=== PATIENT | male | born 1985 | race Two or more races ===

== ENCOUNTER 2016-11-12 12:19 | Inpatient (IN) | payer OTHER ==
[~2016-11-12] VITALS: Ht 165.1 cm; Wt 66.0 kg
--- NOTE | ~2016-11-12 | CO ---
Unit #: [id number] #: [id number] Patient: RITCHIE NELSON [id number] [address] [place], [place] [address] [id number] Allie MR#: [id number] NAME: RITCHIE NELSON. ROOM: [facility]iatric hospital Age: 31 Sex: M Admission Date: 11/12/2016 : 1985 Attending Physician: Johann Lu M.D. Primary Care Physician: Primary Care Physician No Consultation Date: 11/13/2016 CONSULTATION REPORT PRIMARY CARE PHYSICIAN None. REASON FOR CONSULTATION Abnormal MRI, fatigue, and right-sided weakness. PATIENT IDENTIFICATION This is a 31-year-old right-handed male from [facility], who is here as a veterinary aide at [employer], and he has been feeling fatigue for the last several days and probably some right-sided weakness, so he came to the emergency room. He was evaluated and had a CT of the head done which showed possibility of some basal ganglia changes in the left lentiform nuclei and that ended up over the patient going for a head CT, which showed left basal ganglia infarct about 2 cm x 1.4 cm x 1.4 cm, mild local mass effect and so far what we have known is that the patient has significant hypertension when he came in his blood pressure was 233/133 which has been as high as 153 diastolic and still elevated. This morning, the blood pressure was 187/117. Other workup is in progress. He was started on aspirin. His ALT and AST were slight elevated. He is not a smoker. He is not alcohol abuser. He denies any drugs or alcohol use. He denies any family members with early onset stroke or coronary artery issues. He does not take any medication. No hypercoagulable state history available. No prior TIAs. No migraines. No seizures. Dissection type history not really absorb. PAST MEDICAL HISTORY As discussed above. PAST SURGICAL HISTORY Right elbow surgery. ALLERGIES Unit #: [id number] #: [id number] Patient: RITCHIE NELSON None known to us. HOME MEDICATIONS None. FAMILY HISTORY Denies any family history of stroke or coronary artery disease. 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 He denies tobacco, alcohol, or drug use. REVIEW OF SYSTEMS CONSTITUTIONAL: Some fatigue and right-sided weakness. He denies any weight issues, fever, chills, rigors, or sweats. He denies any sleep issue. HEENT: No headaches. No double vision, earache, runny nose, or sore throat. CARDIOVASCULAR: No chest pain, clubbing, cyanosis, orthopnea, or palpitation. PULMONARY: No shortness of air, cough, or expectoration. GI: No nausea, vomiting, diarrhea, or constipation. GENITOURINARY: No genitourinary symptoms. EXTREMITIES: No extremity problems other than some mild right-sided weakness. BACK: No back problem. PSYCHIATRIC: No psychotic issue. NEUROLOGIC: New stroke. No other hematologic, dermatologic, or endocrine issues known to me. PHYSICAL EXAMINATION VITAL SIGNS: Temperature 98.2, pulse 87, respiratory rate 19, blood pressure 187/117. No pain was reported. O2 saturations were 97% to 100%. Weight of 145 pounds, BMI was 24. NEUROLOGIC: The patient is awake, alert, oriented x3. He can name and he can follow commands. No right/left confusion. No finger agnosia. Cranial nerve examination demonstrates full ram of vision to confrontation. Eye movements are conjugate. I did not see any ptosis. I did not see any nystagmus. Extraocular movements are intact. Sensation on the face and scalp are normal. Strength of muscles of facial expression are normal. Hearing seemed to be intact bilaterally. Tongue was midline. Uvula was midline. Palate elevation was normal. Head turning and shoulder shrugs were unremarkable. Motor examination demonstrated normal bulk, tone. Strength was essentially 5/5 on the left side, 4+ to 5- on the right side especially in the right upper extremity and right lower extremity is 5-/5. Sensory examination intact for soft touch and pain sensation. No extinction was seen. Romberg was not evaluated. Gait examination was deferred. Reflexes 1/4. Toes are equivocal. Coordination was otherwise unremarkable for damqkn-mj-fwak-to-finger. DIAGNOSTIC STUDIES Unit #: [id number] #: [id number] Patient: RITCHIE NELSON LABORATORY RESULTS: Personally reviewed. IMAGING STUDIES: Personally reviewed. IMPRESSION Left basal ganglia infarct, hypertensive urgency. I agree with stroke workup. I agree with CTA, 2D echo. I will check his hemoglobin A1c. I will start him on Lipitor and aspirin full dose, good blood pressure control and we will see what shows up. Stroke education and modification of stroke risk factors as apply. Call me for any other questions, issues, or concerns. Further treatment will be based on any findings and he will follow up with Dr. Amaya or neurologist of choice as an outpatient to do a full stroke screening and workup as indicated. I will follow him and discuss with Dr. Lu. Dictated by... Lia Cardenas/margo TD: 11/14/2016 12:01 JOB #: [id number] CONSULTATION REPORT Page 1 of 1 X Suki Rudd MD X CONSULTATION REPORT
--- NOTE | ~2016-11-12 | CT17 ---
[facility] A Service of [facility] RADIOLOGY TEXT RESULTS PATIENT: RITCHIE NELSON LOCATION: [facility] 339-01 : 84 UNIT #: [id number] AGE: [address]: Johann Lu MD SEX: M ORDER DR: [id number] [facility] [address] [facility]. [place], [place] [address] [id number] I MR#: [id number] Acc #: [id number] NAME: RITCHIE NELSON. : 1985 SEX: M STUDY DATE/TIME: 11/13/2016 18:10 UNIT: [address] ROOM: [facility] STUDY DESCRIPTION: CT Angio Head Attending Physician: Johann Lu M.D. Ordering Physician: Suki Rudd M.D. Primary Care Physician: Primary Care Physician No MEDICAL IMAGING REPORT This report is preliminary unless electronic signature is present EXAM CT angiogram of the head and neck with contrast, 11/13/[address] head without contrast and MRI brain without contrast, 11/12/2016 HISTORY Weakness and fatigue for 5 days. Unable to finish words, slurred speech and right-sided weakness. TECHNIQUE CT angiogram of the head and neck was obtained with IV contrast in the axial plane followed by reformats. Curved reformats of the major neck arteries were performed of the neck. Reformats of the [place] of [place] was obtained in all three planes along with tumbling 3-D MIP images and surface rendered images with bilateral MCA snapshots in a separate workstation. This CT exam was performed with one or more of the following radiation dose reduction techniques: automatic exposure control, adjustment of mA and/or kV according to patient size, and iterative reconstruction. FINDINGS NECK: Two vessel aortic arch is seen with the left common carotid artery arising from the innominate artery. Bilateral common carotid arteries do not demonstrate any significant abnormality. In the short segment where there is significant streak artifact from left internal jugular venous contrast, evaluation of the left CCA is limited. Bilateral ICA and ECA do not demonstrate any significant abnormality. Left vertebral artery is dominant. The right vertebral artery is not clearly seen. There are multiple enhancing vessels in the expected course of the right vertebral artery which could be related to enhancing plexus. [facility] A Service of [facility] RADIOLOGY TEXT RESULTS PATIENT: RITCHIE NELSON LOCATION: [facility] 339-01 : [birth year] UNIT #: [id number] AGE: [address]: Johann Lu MD SEX: M ORDER DR: HEAD: Bilateral intracranial internal carotid arteries, anterior and middle cerebral arteries are unremarkable except for slightly decreased caliber of the A1 segment of the right CLAY. ACOM crossfills. Tiny right PCOM and probably left PCOM are present. bilateral posterior cerebral arteries appear to be grossly unremarkable. 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 Left vertebral artery feeds the basilar artery. Right vertebral artery is not seen intracranially either. Dural venous sinuses demonstrate non-visualization of the medial aspect of the left transverse sinus. The lateral half of the left transverse sinus is visualized with smaller caliber left sigmoid sinus. IMPRESSION 1. The right vertebral artery is not clearly seen from its origin to the vertebrobasilar intracranial junction. It could be aplastic or there could be very severe stenosis to complete occlusion of the origin of the right vertebral artery. It is difficult to discern the location of the vessel origin. There are no prior studies for comparison. The basilar artery is predominant and the posterior circulation is predominantly fed by the dominant left vertebral artery. 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 2. No hemodynamically flow-limiting significant stenosis in bilateral internal carotid artery bulbs per NASCET criteria. 3. No significant aneurysm or AVM in the head or neck major vessels. 4. The medial half of the left transverse sinus is not seen. The veins constitute the lateral half of the left transverse sinus. It is probably an expected appearance in this patient. No acute thrombus is seen. 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 5. 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 Attempt is made to contact the nurse taking care of the patient at 10:55 p.m. on 11/13/2016. Dictated by... Chithra Nadine Negro, M.D. THIS IS AN ELECTRONICALLY VERIFIED REPORT Jared Tom M.D. at 11/20/2016 3:11 PM CPR/jw TD: 11/14/2016 11:27 JOB #: [id number] [facility] A Service of [facility] RADIOLOGY TEXT RESULTS PATIENT: RITCHIE NELSON LOCATION: [place] [address] : [birth year] UNIT #: [id number] AGE: [address]: Johann Lu MD SEX: M ORDER DR: MEDICAL IMAGING REPORT Page 1 of 1 COPY
--- NOTE | ~2016-11-12 | HP ---
Unit #: [id number] #: [id number] Patient: RITCHIE NELSON [id number] [address] [place], [place] [address] [id number] I MR#: [id number] NAME: RITCHIE NELSON. ROOM: [id number] Age: Sex: M Admission Date: 11/12/2016 : 1985 Attending Physician: Johann Lu M.D. Primary Care Physician: Primary Care Physician No HISTORY AND PHYSICAL CHIEF COMPLAINT Fatigue. HISTORY OF PRESENT ILLNESS Patient is a 31-year-old male who presented to [facility] emergency department after a 4 day history of fatigue. He states it has been associated with inability to find words and slow thoughts. He had poor appetite. He says he has had some question of right sided weakness and slurred speech so these have resolved. He denies vision changes and trouble swallowing. PAST MEDICAL HISTORY None. PAST SURGICAL HISTORY Right elbow surgery. SOCIAL HISTORY The patient denies tobacco, alcohol, illicit drug use. FAMILY HISTORY The patient denies any significant family history. HOME MEDICATIONS None. ALLERGIES None. REVIEW OF SYSTEMS 10-point review of systems obtained, negative except as per HPI. PHYSICAL EXAM VITAL SIGNS: Temperature 98.1, pulse 92, blood pressure 231/153. GENERAL: 31-year-old male in no acute distress who appears stated age. HEENT: Pupils equally round. Extraocular movements intact. Mucous membranes dry. NECK: Supple. No JVD, no lymphadenopathy. CARDIAC: Regular rate and rhythm. No murmurs, gallops or rubs. LUNGS: Clear to auscultation bilaterally. ABDOMEN: Nontender, nondistended. Positive bowel sounds. EXTREMITIES: No clubbing, cyanosis or edema. They are warm and dry. PSYCH: Alert and oriented x3. Affect is appropriate. NEUROLOGICAL: Cranial nerves II-XII intact grossly. The patient moves Unit #: [id number] #: [id number] Patient: RITCHIE NELSON all extremities equally and with purpose. SKIN: No rashes, bruises or ulcers. MUSCULOSKELETAL: No muscle or joint pain, no muscle or joint swelling. DIAGNOSTIC STUDIES LABORATORIES: Chemistries show AST and ALT of 59 and 71 respectively. Alk. phos. 131. Hemoglobin 12.1, MCV of 59. IMAGING: CT head without contrast shows 5 mm old lacunar infarct in the right lentiform nucleus and a 1.5 cm oval focus of decreased density in the left lentiform nucleus. It is an old infarct but new since May of 2015. ASSESSMENT AND PLAN 1. Hypertensive emergency. Patient received labetalol in the emergency department. I have started him on Cardene 5 mg/hour with titration parameters to maintain systolic blood pressure less than 175 and diastolic pressure less than 110. 2. History of CVA. Based on the CT and old infarcts, I have ordered an MRI to further evaluate these old areas. 3. Prophylaxis. Patient has been started on SCDs. Dictated by Jaguar Barber M.D. EMELI/joslyn TD: 11/12/2016 14:49 JOB #: [id number] HISTORY AND PHYSICAL Page 1 of 1 X Jaguar Barber MD X HISTORY AND PHYSICAL
--- NOTE | ~2016-11-12 | CT71 ---
[facility] A Service of [facility] RADIOLOGY TEXT RESULTS PATIENT: RITCHIE NELSON LOCATION: [facility] 339- : 84 UNIT #: [id number] AGE: [address]: Johann Lu MD SEX: M ORDER DR: [id number] [facility] [address] [facility]. [place], [place] [address] [id number] P MR#: [id number] Acc #: [id number] NAME: RITCHIE NELSON : 1985 SEX: M STUDY DATE/TIME: 11/12/2016 13:15 UNIT: PANKAJ ROOM: STUDY DESCRIPTION: CT Head Wo Contrast Attending Physician: Walt Salazar M.D. Ordering Physician: Walt Salazar M.D. Primary Care Physician: Primary Care Physician No MEDICAL IMAGING REPORT This report is preliminary unless electronic signature is present EXAM Head CT without contrast 11/12/2016 HISTORY Generalized weakness, fatigue and difficulty with speech, dysphasia since 11/08/2016. FINDINGS Multiple axial images were obtained from the skull base to vertex without intravenous contrast administration. This CT examination was performed with one or more of the following radiation dose reduction techniques: automatic exposure control, adjustment of mA and/or kV according to patient size, and iterative reconstruction. The ventricles are normal in size, shape and position. 5 mm old lacunar infarct in the right lentiform nucleus is again noted. Compared with 05/13/2015, there is a new 1.5 cm oval focus of decreased density in the left lentiform nucleus. Although new since the previous exam, the density features suggest chronicity. There is no midline shift. There is no mass or mass effect, hemorrhage or acute infarct. The visualized paranasal sinuses are clear. IMPRESSION Old infarcts as noted above. No acute intracranial abnormality. Dictated by... Clem Walters M.D. THIS IS AN ELECTRONICALLY VERIFIED REPORT Clem Walters M.D. at 11/13/2016 10:36 AM VIKY/alfredito [facility] A Service of [facility] RADIOLOGY TEXT RESULTS PATIENT: RITCHIE NELSON LOCATION: [facility] 339-01 : [birth year] UNIT #: [id number] AGE: [address]: Johann Lu MD SEX: M ORDER DR: TD: 11/12/2016 13:27 JOB #: [id number] MEDICAL IMAGING REPORT Page 1 of 1 COPY
--- NOTE | ~2016-11-12 | CT23 ---
[facility] A Service of [facility] RADIOLOGY TEXT RESULTS PATIENT: RITCHIE NELSON LOCATION: [facility] 339-01 : [birth year] UNIT #: [id number] AGE: [address]: Johann Lu MD SEX: M ORDER DR: [id number] [address] [address] [id number] I MR#: [id number] Acc #: [id number] NAME: RITCHIE NELSON. : 1985 SEX: M STUDY DATE/TIME: 11/13/2016 18:10 UNIT: [address] ROOM: [facility] STUDY DESCRIPTION: CT Angio Neck Attending Physician: Johann Lu M.D. Ordering Physician: Suki Rudd M.D. Primary Care Physician: Primary Care Physician No MEDICAL IMAGING REPORT This report is preliminary unless electronic signature is present EXAM CT angiogram of the neck HISTORY FINDINGS Please see CT angiogram of the head for results. Dictated by... Jared Tom M.D. THIS IS AN ELECTRONICALLY VERIFIED REPORT Jared Tom M.D. at 11/14/2016 7:09 PM TA/elizabeth TD: 11/14/2016 11:28 JOB #: [id number] MEDICAL IMAGING REPORT Page 1 of 1 COPY
--- NOTE | ~2016-11-12 | MR18 ---
[facility] A Service of [facility] RADIOLOGY TEXT RESULTS PATIENT: RITCHIE NELSON LOCATION: [facility] 339-01 : [birth year] UNIT #: [id number] AGE: [address]: Johann Lu MD SEX: M ORDER DR: [id number] [facility] [address] [facility]. [place], [place] [address] [id number] I MR#: [id number] Acc #: [id number] NAME: RITCHIE NELSON. : 1985 SEX: M STUDY DATE/TIME: 11/12/2016 16:05 UNIT: A U ROOM: 339 STUDY DESCRIPTION: MR Brain Wo Contrast Attending Physician: Johann Lu M.D. Ordering Physician: Jaguar Barber M.D. Primary Care Physician: Primary Care Physician No MRI CENTER REPORT This report is preliminary unless electronic signature is present. EXAM MRI brain without HISTORY Weakness and fatigue since with speech difficulty. Abnormal head CT admitted with hypertension and weakness. COMMENTS MRI of the brain was performed without contrast using routine 1.5T imaging technique. Head CT for comparison is from 11/12/2016. Preliminary wet reading provided by Dr. Newton 17:49 11/12/2016. There is a focus of abnormally restricted diffusion in the left basal ganglia extending into the left gramajo radiata. It measures about 2 x 1.6 x 1.4 cm dimension. It is centered in the putamen involves the body of the caudate and probably involves the posterior limb left internal capsule. It is not associated with hemorrhagic transformation at this time on the MRI or earlier CT. Given the location and history is likely due to small vessel disease in the setting of hypertension. Clinical correlation and followup is recommended. At this time there is mild local mass effect consistent with a recent nature of the insult. There are other smaller areas of likely preexisting sequelae of small vessel disease. This includes a small lesion in the right putamen posteriorly superiorly. Mild nonspecific white matter disease likely due to small vessel disease. No midline shift or downward herniation. The basilar cisterns are patent. The major arterial intracranial flow voids are maintained. The distal right vertebral artery is hypoplastic or diseased. The mastoid air cells are clear. The visualized paranasal sinuses are clear. IMPRESSION [facility] A Service of [facility] & [facility] RADIOLOGY TEXT RESULTS PATIENT: RITCHIE NELSON LOCATION: [facility] 339-01 : [birth year] UNIT #: [id number] AGE: [address]: Johann Lu MD SEX: M ORDER DR: 1. Focus of recent ischemia centered in the superior left basilar ganglia extending into the gramajo radiata measuring 2 x 1.6 x 1.4 cm in dimension. It is associated with mild local mass effect but there is no evidence for hemorrhagic transformation. It is probably due to small vessel disease in light of history provided. 2. Likely mild preexisting probable sequelae of small vessel disease. Dictated by... Ivory Hopkins M.D. THIS IS AN ELECTRONICALLY VERIFIED REPORT Ivory Hopkins M.D. at 11/13/2016 2:15 PM MIRA/cecil TD: 11/13/2016 09:35 JOB #: [id number] MRI CENTER REPORT Page 1 of 1 COPY
--- NOTE | ~2016-11-12 | DS ---
Unit #: [id number] #: [id number] Patient: RITCHIE NELSON [id number] [address] [address] [id number] Allie MR#: [id number] NAME: RITCHIE NELSON. ROOM: [facility] Age: 31 Sex: M Admission Date: 11/12/2016 : 1985 Discharge Date: 11/14/2016 Attending Physician: Johann Lu M.D. Primary Care Physician: No Primary Care Physician DISCHARGE SUMMARY PRIMARY DIAGNOSIS Acute stroke in the superior left basal ganglia. SECONDARY DIAGNOSES 1. Hypertensive emergency. 2. Mild to moderate left ventricular hypertrophy, concentric. 3. Dyslipidemia. 4. Hypokalemia. HOSPITAL COURSE The patient was admitted to the hospital with neurologic symptoms and was initially started on Cardene drip and hydralazine. With patient being away from his high salt diet, his blood pressure dropped rapidly and he was quickly taken off of the Cardene drip within several hours of his hospitalization. He was maintained on p.o. blood pressure medications with fairly good control, although he is being adjusted to once daily medications with the exception of Lasix at the time of discharge in order to encourage compliance outpatient as opposed to hydralazine three times a day, which he was on here in the hospital. The patient was counseled at length about his stroke. I also called and spoke to his employer at his request. 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 The patient had an echocardiogram, CT angiogram of the head and neck and a MRI of the head while here in the hospital. Dr. Rudd with Neurology was consulted. Due to the patient's findings on the CT angiogram of the neck, which included a smaller occluded right vertebral and significant atherosclerosis in other arteries, he did recommend the patient follow up with [facility]. I called and left a message at the [facility] office to get him into their system and they will call back to set up followup. The patient did have some mild transaminitis. He did have a hepatitis panel drawn during this hospitalization which is pending at the time of discharge. DISCHARGE DISPOSITION To home. DISCHARGE STATUS Stable. DISCHARGE ACTIVITY Ad edilson. Unit #: [id number] #: [id number] Patient: RITCHIE NELSON DISCHARGE DIET A 2,000 mg sodium per day diet. I did give the patient a four page handout in Estonian to help begin to manage the sodium in his diet and educate him about reading labels on his foods. DISCHARGE FOLLOWUP 1. With the [facility] in four to eight weeks. 2. Follow up with [facility] here at [facility] on December 06 at 9 a.m. 3. Follow up with PCP of his choice in four to 10 weeks. DISCHARGE MEDICATIONS 1. Lipitor 40 mg p.o. q.h.s. 2. Aspirin 325 mg p.o. daily. 3. Lasix 20 mg p.o. b.i.d. 4. Lisinopril 10 mg p.o. daily. 5. Norvasc 5 mg p.o. daily. 6. Potassium chloride 40 mEq p.o. daily. Dictated by... Johann Lu M.D. ANIA/shirley TD: 11/15/2016 09:13 JOB #: [id number] DISCHARGE SUMMARY Page 1 of 1 X Johann Lu MD X DISCHARGE SUMMARY
--- NOTE | ~2016-11-12 | EKG ---
PATIENT: RITCHIE NELSON UNIT #: [id number] Ventricular Rate: 75 BPM Atrial Rate: 75 BPM P-R Interval: 166 ms QRS Duration: 78 ms Q-T Interval: 358 ms QTC Calculation(Bezet): 399 ms P [place]: 26 degrees Calculated R [place]: -7 degrees Calculated T [place]: -150 degrees Diagnosis Line: Normal sinus rhythm Diagnosis Line: Voltage criteria for left ventricular hypertrophy Diagnosis Line: T wave abnormality, consider lateral ischemia Diagnosis Line: Abnormal ECG Diagnosis Line: No previous ECGs available Diagnosis Line: Confirmed by JODEE KIM MD ([id number]) on 11/12/2016 Diagnosis Line: 2:08:12 PM INTERPRETING MD: JUDY FLOYD
--- NOTE | ~2016-11-12 | CR72 ---
[facility]. [facility] A Service of [facility] & [facility] RADIOLOGY TEXT RESULTS PATIENT: RITCHIE NELSON LOCATION: [place] [id number] : [birth year] UNIT #: [id number] AGE: [address]: Johann Lu MD SEX: M ORDER DR: [id number] [facility] [address] [place], [place] [address] [id number] P MR#: [id number] Acc #: [id number] NAME: RITCHIE NELSON : 1985 SEX: M STUDY DATE/TIME: 11/12/2016 13:05 UNIT: [facility] ROOM: STUDY DESCRIPTION: CR Chest Single View Portable Attending Physician: Walt Salazar M.D. Ordering Physician: Walt Salazar M.D. Primary Care Physician: Primary Care Physician No MEDICAL IMAGING REPORT This report is preliminary unless electronic signature is present EXAM Portable chest, 11/12/2016 HISTORY Generalized weakness and fatigue for 5 days. Benign essential hypertension. FINDINGS A single AP portable view of the chest shows both lungs to be clear. The heart is normal in size. The mediastinal contour is normal. No significant bone abnormalities are seen. IMPRESSION Normal portable chest. Dictated by... Clem Walters M.D. THIS IS AN ELECTRONICALLY VERIFIED REPORT Clem Walters M.D. at 11/13/2016 10:36 AM VIKY/elizabeth TD: 11/12/2016 13:16 JOB #: [id number] MEDICAL IMAGING REPORT Page 1 of 1 COPY
[2016-11-12 13:12] LABS: POC - CKMB 1.4 ng/mL (0.0-7.9); POC - TROPONIN <0.05 ng/mL (<=0.05)
[2016-11-12 13:23] LABS: BASOPHIL% 0.1 % (0-2.5); DIFF IND YES; EOSINOPHIL% 0.3 % (0.0-7.0); HEMATOCRIT 37.6 % (38.0-50.0); HEMOGLOBIN 12.1 gm/dL (13.0-16.0); LYMPHOCYTE# 1.5 X10e3 (1.0-3.5); LYMPHOCYTE% 19.8 % (17.0-45.0); MEAN CORPUSCULAR HGB CONC 32.2 g/dL (30-36); MEAN PLATELET VOLUME 8.7 FL (6.5-11.5); MONOCYTE# 0.6 X10e3 (0-1.0); MONOCYTE% 7.5 % (3.0-12.0); NEUTROPHIL# 5.5 X10e3 (1.5-7.1); NEUTROPHIL% 72.3 % (40-75); PLATELET COUNT 252 X10e3 (140-420); RED BLOOD COUNT 6.37 X10e (3.90-5.60); RED CELL DISTRIBUTION WIDTH 15.7 % (11.0-15.5); WHITE BLOOD COUNT 7.6 X10e3 (4.0-10.5)
[2016-11-12 13:24] LABS: ALBUMIN SERUM 4.1 g/dL (3.5-5.0); BILIRUBIN, DIRECT 0.2 mg/dL (0.0-0.2); BILIRUBIN,INDIRECT 1.1 mg/dL (0.0-0.9); BILIRUBIN,TOTAL 1.3 mg/dL (0.2-2.0); BUN/CREATININE RATIO 9.23; CALCIUM SERUM 9.4 mg/dL (8.4-10.2); CREATININE SERUM 1.3 mg/dL (0.6-1.4); GLOM FILT RATE Estimated 72.2 mL/min (>60); POTASSIUM 3.7 mmol/L (3.5-5.1); PROTEIN TOTAL SERUM 7.8 g/dL (6.0-8.3)
[2016-11-12 13:57] LABS: ANISOCYTOSIS SL; PLATELET ESTIMATE NORMAL (NORMAL)
[2016-11-12 13:58] LABS: MICROCYTOSIS MOD
[2016-11-12 13:59] LABS: HYPOCHROMIA SL
[2016-11-12 14:43] LABS: AMPHETAMINE NEG (NEG); BARBITURATES NEG (NEG); BENZODIAZEPINES NEG (NEG); COCAINE NEG (NEG); MARIJUANA NEG (NEG); OPIATES NEG (NEG); TRICYCLIC ANTIDEPRESSANTS NEG (NEG); U METHADONE NEG (NEG)
[2016-11-12 15:29] LABS: CPK (CREATINE PHOSPHOKINASE) 101 IU/L (36-174); IRON SERUM 78 ug/dL (45-182); TOTAL IRON BINDING CAPACITY 380 ug/dL (252-460); TRANSFERRIN 271 mg/dL (180-329); TRANSFERRIN SATURATION 21 % (20-50)
[2016-11-12 16:09] LABS: FOLATE (FOLIC ACID) 14.8 ng/mL (>5.8)
[2016-11-13 10:16] LABS: HEMATOCRIT 39.1 % (38.0-50.0); HEMOGLOBIN 12.4 gm/dL (13.0-16.0); MEAN CELL VOLUME 59.7 FL (83-96); MEAN CORPUSCULAR HEMOGLOBIN 18.9 PG (28-34); MEAN CORPUSCULAR HGB CONC 31.7 g/dL (30-36); MEAN PLATELET VOLUME 8.6 FL (6.5-11.5); RED BLOOD COUNT 6.55 X10e (3.90-5.60); RED CELL DISTRIBUTION WIDTH 15.5 % (11.0-15.5); WHITE BLOOD COUNT 9.5 X10e3 (4.0-10.5)
[2016-11-13 10:45] LABS: ALBUMIN SERUM 4.1 g/dL (3.5-5.0); BILIRUBIN,TOTAL 1.7 mg/dL (0.2-2.0); BUN/CREATININE RATIO 13.33; CALCIUM SERUM 9.4 mg/dL (8.4-10.2); CREATININE SERUM 1.2 mg/dL (0.6-1.4); GLOM FILT RATE Estimated 79.6 mL/min (>60); POTASSIUM 3.9 mmol/L (3.5-5.1); PROTEIN TOTAL SERUM 7.8 g/dL (6.0-8.3)
[2016-11-13 15:05] LABS: CHOLESTEROL 259 mg/dL (0-200); HDL CHOLESTEROL 40 mg/dL (29-75); LDL/HDL RATIO 5 RATIO (0-4); TRIGLYCERIDES 195 mg/dL (10-160)
[2016-11-13 15:13] LABS: LDL CHOLESTEROL 180 mg/dL (-130)
[2016-11-14 06:24] LABS: ALBUMIN SERUM 3.7 g/dL (3.5-5.0); BILIRUBIN,TOTAL 1.4 mg/dL (0.2-2.0); BUN/CREATININE RATIO 15.38; CALCIUM SERUM 9.2 mg/dL (8.4-10.2); CREATININE SERUM 1.3 mg/dL (0.6-1.4); GLOM FILT RATE Estimated 72.2 mL/min (>60); POTASSIUM 3.4 mmol/L (3.5-5.1); PROTEIN TOTAL SERUM 7.4 g/dL (6.0-8.3)
[2016-11-14] MEDS ORDERED: LIPITOR40 MG PO (15:04)
[2016-11-14] MEDS ORDERED: ASPIRIN PO (15:05)
[2016-11-14] MEDS ORDERED: KCL PO (15:06)
[2016-11-14] MEDS ORDERED: LASIX20 MG PO (15:06)
[2016-11-14] MEDS ORDERED: NORVASC PO (15:07)
[2016-11-14] MEDS ORDERED: LISINOPRIL10 MG PO (15:07)
[2016-11-16 08:34] LABS: HA AB IGM (HEPPAN) Nonreactive (()); HB CORE AB IGM (HEPPAN) Nonreactive (Nonreactive); HB S AG (HEPPAN) Nonreactive (Nonreactive); HEP C AB (HEPPAN) Nonreactive (Nonreactive); HEP C AB SIGNAL TO CUTOFF 0.03 ratio (<1.00)
== END 2016-11-14 16:23 | disposition home or self-care (01) | DRG 65 ==
LOC: CED 12:19 → CEDOF 14:25 → CED 14:42 → CEDOF 11-13 06:01 → C3A PCU 11-13 08:25
PROVIDERS: Emergency Medicine; Internal Medicine; Psychiatry & Neurology Neurology
PROC: B24BZZZ Ultrasonography of Heart with Aorta (ICD-10-PCS; principal; 2016-11-13)
PROC: B325YZZ Computerized Tomography (CT Scan) of Bilateral Common Carotid Arteries using Other Contrast (ICD-10-PCS; 2016-11-13)
PROC: B32GYZZ Computerized Tomography (CT Scan) of Bilateral Vertebral Arteries using Other Contrast (ICD-10-PCS; 2016-11-13)
PROC: B32RYZZ Computerized Tomography (CT Scan) of Intracranial Arteries using Other Contrast (ICD-10-PCS; 2016-11-13)
PROC: B328YZZ Computerized Tomography (CT Scan) of Bilateral Internal Carotid Arteries using Other Contrast (ICD-10-PCS; 2016-11-13)
DX: I63.8 Other cerebral infarction (principal); I16.1 Hypertensive emergency; G81.91 Hemiplegia, unspecified affecting right dominant side; E78.5 Hyperlipidemia, unspecified; I51.7 Cardiomegaly; E87.6 Hypokalemia; R74.0 Nonspecific elevation of levels of transaminase and lactic acid dehydrogenase [LDH]; Z86.73 Personal history of transient ischemic attack (TIA), and cerebral infarction without residual deficits
CPT/HCPCS: 36415; 70450; 70496; 70498; 70551; 71010; 80048; 80053; 80061; 80074; 80076; 80307; 82550; 82553; 82607; 82728; 82746; 82947; 83036; 83540; 83550; 84484; 85025; 85027; 86140; 92523-GN; 93005; 93306; 96374; 97161; 97165; 99285; G8978-GP; G8979-GP; G8980-GP; G8987-GO; G8988-GO; G8989-GO; G9162-GN; G9163-GN; G9164-GN; J1815; J1940; Q9967